=== PATIENT | female | born 1985 | race Caucasian/White ===

== ENCOUNTER → 2019-08-10 15:21 | Outpatient (BNVA) | payer OTHER, SELFPAY | PROVIDERS: Family Provider Family Medicine; PCP Family Medicine; Visit Provider Emergency Medicine | DX: H10.31 Unspecified acute conjunctivitis, right eye (principal); N39.0 Urinary tract infection, site not specified | CPT/HCPCS: 81000 ==

== ENCOUNTER → 2020-02-27 14:24 | Outpatient (BNVA) | payer SELFPAY | PROVIDERS: Family Provider Family Medicine; PCP Family Medicine; Visit Provider Obstetrics & Gynecology | DX: N81.10 Cystocele, unspecified (principal); N39.0 Urinary tract infection, site not specified; N95.1 Menopausal and female climacteric states | CPT/HCPCS: 81000; 83001; 87077; 87086; 87184 ==

== ENCOUNTER → 2020-08-24 14:51 | Outpatient (BNVA) | payer SELFPAY | PROVIDERS: Family Provider Family Medicine; PCP Family Medicine; Visit Provider Emergency Medicine | DX: N39.0 Urinary tract infection, site not specified (principal); R35.0 Frequency of micturition | CPT/HCPCS: 81000 ==

== ENCOUNTER → 2020-09-19 12:53 | Outpatient (BNVA) | payer OTHER, SELFPAY | PROVIDERS: Family Provider Family Medicine; PCP Family Medicine; Visit Provider Emergency Medicine | DX: R68.89 Other general symptoms and signs (principal); R11.0 Nausea; F32.9 Major depressive disorder, single episode, unspecified | CPT/HCPCS: 87635 ==

== ENCOUNTER → 2020-11-02 12:31 | Outpatient (BNVA) | payer SELFPAY | PROVIDERS: Family Provider Family Medicine; PCP Family Medicine; Visit Provider Emergency Medicine | DX: J02.9 Acute pharyngitis, unspecified (principal) | CPT/HCPCS: 87880 ==

== ENCOUNTER 2021-03-20 12:18 | Outpatient (CLI) | payer SELFPAY ==
--- NOTE | 2021-03-20 12:45 | USCV_ITS ---
Francesca Banerjee Age: 35 Gender: F : 1985 Exam Date: 03/20/2021 12:48 Ordering Phys: Antonio Corral M.D ([email or web address]) Technologist: [email or web address] Exam Location: [facility] – [place] Indication: DYSPNEA with frequent PVCs x 1-2 yrs. No hx cardiac interventionn. BP: / HR: 94 Rhythm: Sinus Technical Quality: Good MEASUREMENTS (Male / Female) Normal Values 2D ECHO LV Diastolic Diameter PLAX 4.8 cm 4.2 - 5.9 / 3.9 - 5.3 cm LV Systolic Diameter PLAX 2.6 cm IVS Diastolic Thickness 1.1 cm 0.6 - 1.0 / 0.6 - 0.9 cm IVS Systolic Thickness 1.5 cm LVPW Diastolic Thickness 1.0 cm 0.6 - 1.0 / 0.6 - 0.9 cm LVPW Systolic Thickness 1.8 cm LVOT Diameter 1.9 cm LV Ejection Fraction 2D Teich 76.9 % LV Ejection Fraction MOD 2C 52.5 % LV Ejection Fraction 2C AL 50.7 % LA Diameter 3.1 cm LA Width 3.3 cm LA Height 3.7 cm RA Width 3.7 cm RA Height 4.0 cm Aorta at Sinotubular Diameter 3.3 cm M-MODE Aortic Annulus Diameter 3.0 cm LA Ao Ratio MM 0.9 MV E Point Septal Separation 0.2 cm DOPPLER AV Peak Velocity 109.0 cm/s LVOT Peak Velocity 101.0 cm/s AV Area Cont Eq vti 2.7 cm squared AV Area Cont Eq pk 2.5 cm squared MV Peak Velocity 89.0 cm/s MV Area PHT 3.9 cm squared Mitral E to A Ratio 0.9 MV E' Velocity 35.5 cm/s Mitral E to MV E' Ratio 6.3 Mitral E to LV E' Lateral Ratio 6.7 Mitral E to LV E' Septal Ratio 5.9 TR Peak Velocity 179.5 cm/s TR Peak Gradient 12.9 mmHg Right Atrial Pressure 5.0 mmHg Pulmonary Artery Systolic Pressu 17.9 mmHg PV Peak Velocity 83.7 cm/s RV Acceleration Time 0.2 s RV Ejection Time 0.4 s RV AcT/ET 0.6 FINDINGS Left Ventricle Normal left ventricular size. LV systolic function is normal with EF of 55-60%. No regional wall motion abnormalities. Normal diastolic filling pattern. Right Ventricle The right ventricle is normal in size and function. Right Atrium The right atrium is normal in size. Left Atrium The left atrium is normal in size. Mitral Valve Structurally normal mitral valve without significant stenosis or prolapse. There is trace mitral regurgitation. Aortic Valve Structurally normal aortic valve without significant sclerosis or stenosis. There is no aortic regurgitation. Tricuspid Valve Structurally normal tricuspid valve without significant stenosis. Mild tricuspid regurgitation Pulmonic Valve Structurally normal pulmonic valve without significant stenosis. There is no pulmonic regurgitation. Pericardium Normal pericardium without effusion. Aorta Normal ascending aorta dimension. CONCLUSIONS LV systolic function is normal with EF of 55 to 60%. Normal diastolic function. Trace mitral regurgitation Mild tricuspid regurgitation. No comparison studies are available. Antonio Corral MD (Electronically Signed) Final Date: 20 March 2021 14:48 S
== END 2021-03-20 12:19 | disposition home or self-care (01) ==
LOC: RAD 12:21
PROVIDERS: PCP Internal Medicine; Visit Provider Internal Medicine
DX: R06.00 Dyspnea, unspecified (principal); I08.1 Rheumatic disorders of both mitral and tricuspid valves
CPT/HCPCS: 93306